=== PATIENT | female | born 1980 ===

== ENCOUNTER 2021-09-20 13:19 | Emergency (ER) | payer SELFPAY ==
[2021-09-20] MEDS ORDERED: ONDANSETRON 4 MG/2 ML INJ IV ONE (13:51)
[2021-09-20] MEDS ORDERED: MORPHINE 2 MG/1 ML INJ IV ONE (13:51)
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
[2021-09-20 14:43] LABS: Basophils % (Auto) 0.4 % (0.0-1.8); Eosinophils # (Auto) 0.1 K/mm3 (0.0-0.4); Eosinophils % (Auto) 0.8 % (0.0-4.3); Hematocrit 44.7 % (30.3-42.9); Hemoglobin 14.7 gm/dl (10.1-14.3); Lymphocytes # (Auto) 1.5 K/mm3 (1.2-5.4); Lymphocytes % (Auto) 17.4 % (13.4-35.0); Mean Corpuscular HGB Conc 33 % (30-34); Mean Corpuscular Volume 89 fl (79-97); Monocytes # (Auto) 0.6 K/mm3 (0.0-0.8); Monocytes % (Auto) 6.9 % (0.0-7.3); Red Blood Count 5.01 M/mm3 (3.65-5.03); Red Cell Distribution Width 13.7 % (13.2-15.2)
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
[2021-09-20 14:44] LABS: Platelet Count 243 K/mm3 (140-440)
[2021-09-20 14:53] LABS: INR 0.9 (0.87-1.13)
[2021-09-20 14:54] LABS: Partial Thromboplastin Time 26.2 Sec. (24.2-36.6)
[2021-09-20 15:03] LABS: Alanine Aminotransferase 15 units/L (7-56); BUN/Creatinine Ratio 16; Blood Urea Nitrogen 13 mg/dL (7-17); Calcium 9.3 mg/dL (8.4-10.2); Hemolysis Index 15
[2021-09-20 16:51] LABS: HCG Qualitative,Urine Negative (Negative)
[2021-09-20 16:55] LABS: Bilirubin,Urine NEG (Negative); Blood,Urine LG (Negative); Color,Urine Yellow (Yellow); Mucus,Urine FEW /HPF; Protein,Urine <15 mg/dL mg/dL (Negative); Urobilinogen,Urine < 2.0 mg/dL (<2.0)
[2021-09-20] MEDS ORDERED: HYDROGEN PEROXIDE 118 ML SOLUTION TP ONE (17:01)
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
[2021-09-20 18:51] VITALS: BP 120/71
--- NOTE | 2021-09-21 20:24 | Electrocardiograph Report ---
[facility] Test Date: 2021-09-20 Test Time: 13:37:25 Pat Name: BOB SHERMAN Department: Room: Gender: F [employer]: [id number] : 1980 Requested By: LAURO MARTELL Order Number: [id number] Reading MD: Laxmi Krause Measurements Intervals [place] Rate: 97 P: 59 NH: 166 QRS: 77 QRSD: 79 T: 36 QT: 349 QTc: 443 Interpretive Statements Sinus rhythm Probable left atrial enlargement No previous ECG available for comparison Electronically Signed On 09-21-2021 20:23:52 EDT by Laxmi Krause
== END 2021-09-20 22:00 | disposition home or self-care (01) ==
LOC: ED 13:19
DX: S01.81XA Laceration without foreign body of other part of head, initial encounter (principal); M25.552 Pain in left hip; M25.522 Pain in left elbow; V23.4XXA Motorcycle driver injured in collision with car, pick-up truck or van in traffic accident, initial encounter; Y93.89 Activity, other specified; Y92.89 Other specified places as the place of occurrence of the external cause; Y99.8 Other external cause status
CPT/HCPCS: 36415; 70450; 70486; 72125; 73070; 73502; 80053; 81001; 81025; 85025; 85610; 85730; 93005; 96374; 96375; 99284; J2270; J2405